=== PATIENT | female | born 1995 | race Caucasian/White ===

== ENCOUNTER → 2016-10-06 18:28 | Outpatient (CLI) | payer OTHER ==
[2016-10-06 20:05] LABS: AMYLASE - SERUM 43 U/L (25-115); LIPASE 117 U/L (73-393)
== END | disposition home or self-care (01) ==
LOC: D.LABREF 18:28
PROVIDERS: Family Medicine
DX: R10.0 Acute abdomen (principal)

== ENCOUNTER → 2016-10-06 19:57 | Outpatient (CLI) | payer OTHER | END | disposition home or self-care (01) | LOC: D.LAB 19:57 | DX: R10.0 Acute abdomen (principal) ==

== ENCOUNTER → 2016-12-04 09:27 | Outpatient (CLI) | payer OTHER | END | disposition home or self-care (01) | LOC: D.US 09:27 | DX: R10.9 Unspecified abdominal pain (principal) ==

== ENCOUNTER → 2016-12-11 13:34 | Outpatient (CLI) | payer OTHER | END | disposition home or self-care (01) | LOC: D.LABREF 13:34 | DX: Z32.00 Encounter for pregnancy test, result unknown (principal) ==

== ENCOUNTER → 2016-12-23 18:51 | Outpatient (CLI) | payer OTHER ==
[2016-12-25 07:25] LABS: RAPID PLASMA REAGIN Non Reactive (Non Reactive)
== END | disposition home or self-care (01) ==
LOC: D.LDO 18:51 → D.LABREF 18:51
PROVIDERS: Family Medicine
DX: Z72.51 High risk heterosexual behavior (principal)

== ENCOUNTER → 2017-02-10 11:37 | Outpatient (CLI) | payer OTHER | END | disposition home or self-care (01) | LOC: D.CT 11:30 | DX: R10.9 Unspecified abdominal pain (principal) ==